=== PATIENT | male | born 1965 | race Caucasian/White ===

== ENCOUNTER 2019-07-11 08:04 | Day surgery (SDC) | payer OTHER ==
[~2019-07-11] VITALS: Ht 180.3 cm; Wt 95.3 kg
[~2019-07-11 08:04] MED LIST: DILAUDID2 MG OR; FLEXERIL OR; NAPROSYN500 MG OR
[2019-07-11 12:19] VITALS: BP 122/60
--- NOTE | 2019-07-14 14:14 | NUR ---
PER DR ELY, I ADVISED MILTON BECKETT THAT PATIENT NEEDS TO BE REFERRED TO ONCOLOGY. ALSO FAXED RESULTS TO [facility].
== END 2019-07-11 12:40 | DRG 607 ==
LOC: ORM 08:04
PROVIDERS: ATTEND Surgery
PROC: 0JB40ZX Excision of Right Neck Subcutaneous Tissue and Fascia, Open Approach, Diagnostic (ICD-10-PCS; principal; 2019-07-11)
DX: C44.41 Basal cell carcinoma of skin of scalp and neck (principal); Z85.828 Personal history of other malignant neoplasm of skin